=== PATIENT | male | born 1980 | race Caucasian/White ===

== ENCOUNTER → 2021-07-02 03:58 | Outpatient (CLI) | payer BC, SELFPAY ==
[2021-07-02 20:04] LABS: SARS-CoV-2 RNA PCR Negative
== END ==
PROVIDERS: PCP Internal Medicine; Visit Provider Nurse Practitioner
DX: Z20.822 Contact with and (suspected) exposure to COVID-19 (principal)
CPT/HCPCS: C9803; U0003; U0005

== ENCOUNTER → 2023-01-29 07:32 | Outpatient (CLI) | payer BC, SELFPAY ==
--- NOTE | ~2023-01-29 | MR_ITS ---
MRI of the lumbar spine Clinical History: Radiculopathy Technique: Axial T2-weighted images, and sagittal T1-weighted, T2-weighted, and T2 fat-sat images wer e acquired. COMPARISON: 03/31/2014 Findings: There is no fracture or subluxation of the lumbar spine. Vertebral bodies maintain normal h eight and alignment. No suspicious bone marrow signal reality seen. At L1-L2, L2-L3, L3-L4, there is no disc bulge or herniation. There are mild to moderate facet joint degenerative changes at these levels. No spinal canal stenosis or neural foraminal narrowing at these levels. At L4-L5, there is minimal disc bulge with probable tiny annular fissure. There is mild facet arthrop athy. No central canal stenosis. Probable minimal neural foraminal narrowing bilaterally. At L5-S1, there is right paracentral disc extrusion extending towards the right foraminal region and central aspect of the spinal canal. There is severe right lateral recess stenosis and moderate to sev ere right neural foraminal narrowing. There is also moderate to severe left neural foraminal narrowin g. Paravertebral soft tissues are unremarkable. Impression: Disc extrusion at L5-S1 centered at the right paracentral region, resulting in right lateral recess s tenosis. There is associated moderate to severe bilateral neural foraminal narrowing at this level. Minimal degenerative change at L4-L5, as detailed above. Reviewed, dictated and finalized at [facility]. Impression: Disc extrusion at L5-S1 centered at the right paracentral region, resulting in right lateral recess stenosis. There is associated moderate to severe bilateral neural foraminal narrowing at this level. Minimal degenerative change at L4-L5, as detailed above.
== END ==
PROVIDERS: PCP Physical Medicine & Rehabilitation; Visit Provider Physical Medicine & Rehabilitation
DX: M54.16 Radiculopathy, lumbar region (principal); M51.27 Other intervertebral disc displacement, lumbosacral region
CPT/HCPCS: 72148